=== PATIENT | male | born 2000 | race Caucasian/White ===

== ENCOUNTER 2020-08-23 11:05 | Emergency (ER) | payer BC ==
--- NOTE | 2020-08-23 11:48 | EDM.PDOC ---
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 He denies any other injuries, fever, chills, nausea, vomiting, change in bowel/bladder or other concerns. Last tetanus 8 years ago. - Related Data Allergies Allergy/AdvReac Type Severity Reaction Status Date / Time No Known Allergies Allergy Verified 08/23/20 11:26 Home Meds: Home Meds NK [No Known Home Meds] 08/23/20 [History] Past Medical History - Past Surgical History HEENT Surgical History: Reports: Myringotomy w Tube(s) Social & Family History - Tobacco Use Tobacco Use Status *Q: Current Every Day Tobacco User Years of Tobacco use: 1 Packs/Tins Daily: 0.2 ED ROS GENERAL - Review of Systems Review Of Systems: See Below Constitutional: Reports: No Symptoms HEENT: Reports: No Symptoms Respiratory: Reports: No Symptoms Cardiovascular: Reports: No Symptoms Endocrine: Reports: No Symptoms GI/Abdominal: Reports: No Symptoms : Reports: No Symptoms Musculoskeletal: Reports: Other (Pain to right index finger with flap laceration. Bleeding controlled) Skin: Reports: Wound (small flap laceration to tip of right index finger, bleeding controlled) Neurological: Reports: No Symptoms Psychiatric: Reports: No Symptoms Hematologic/Lymphatic: Reports: No Symptoms Immunologic: Reports: No Symptoms ED EXAM, SKIN/RASH Exam: See Below Exam Limited By: No Limitations General Appearance: Alert, WD/WN, Mild Distress Head: Atraumatic, Normocephalic Respiratory/Chest: No Respiratory Distress, Lungs Clear, Normal Breath Sounds, No Accessory Muscle Use, Chest Non-Tender. No: Crackles, Rales, Rhonchi, Wheezing Cardiovascular: Normal Peripheral Pulses, Regular Rate, Rhythm, No Edema, No Gallop, No Murmur, No Rub Peripheral Pulses: 4+: Radial (L), Radial (R) Extremities: Normal Range of Motion, Non-Tender, No Pedal Edema, Normal Capillary Refill, Other (0.5cm flap laceration right index finger, bleeding controlled. ) Neurological: Alert, Oriented, Normal Cognition, Normal Gait, Normal Reflexes, No Motor/Sensory Deficits Psychiatric: Normal Affect, Normal Mood Skin: Warm, Dry, Normal Color, No Rash Location, Skin: Other (right index finger, 0.5cm flap laceration fingertip, bleeding controlled) Associated features: Tenderness Lymphatic: No Adenopathy ED SKIN PROCEDURES - Laceration/Wound Repair Right Digit - 2nd (Index) Appearance: Superficial, Clean Distal NVT: Neuro & Vascular Intact, No Tendon Injury Anesthetic Type: Topical (None used) Local Anesthesia - Lidocaine (Xylocaine): Other (topical LET applied for 20 minutes, bleeding controlled) Skin Prep: Chlorhexidine (Hibiciens), Saline Exploration/Debridement/Repair: No Foreign Material Found, Other (distal finger nail removed, flap very thin, became dislodge, LET used with surgicel, bacitracin applied, finger dressing applied.) Closed with: Other (No sutures) Lac/Wound length In cm: 0.5 Sterile Dressing Applied: Nurse Tetanus Status Addressed: Yes Complications: No Course - Vital Signs Last Recorded V/S: Last Vital Signs Temp 36.1 C 08/23/20 11:34 Pulse 92 08/23/20 11:34 Resp 14 08/23/20 11:34 BP 130/80 08/23/20 11:34 Pulse Ox Departure - Departure Time of Disposition: 12:20 Disposition: Home, Self-Care 01 Condition: Good Clinical Impression: Flap laceration of skin, Laceration of index finger of right hand without complication - Discharge Information *PRESCRIPTION DRUG MONITORING PROGRAM REVIEWED*: Not Applicable *COPY OF PRESCRIPTION DRUG MONITORING REPORT IN PATIENT [place]: Not Applicable Instructions: Traumatic Finger Amputation Referrals: PCP,None [Primary Care Provider] - Forms: ED Department Discharge Additional Instructions: You have been evaluated and treated for flap fingertip laceration of right index finger. Small lacerated fingernail removed. Skin flap in place. Keep dressing on for 24 hours. Keep finger clean and dry. Use fingertip splint for protection with activity. Bacitracin to laceration twice per day. Gentle cleansing with soap and water twice per day. No need for tetanus today. Take ibuprofen and acetaminophen as needed for pain. Return for any worsening, swelling or signs of infection. Sepsis Event Note (ED) - Evaluation Sepsis Screening Result: No Definite Risk - Focused Exam Vital Signs: Vital Signs Temp Pulse Resp BP 11/08/20 11:34 36.1 C 92 14 130/80 - Assessment/Plan Assessment:: Flap laceration of skin, Laceration of index finger of right hand without complication Plan: Patient evaluated and treated for flap fingertip laceration of right index finger. Small lacerated fingernail removed. Skin flap in place. Keep dressing on for 24 hours. Keep finger clean and dry. Use fingertip splint for protection with activity. Bacitracin to laceration twice per day. Gentle cleansing with soap and water twice per day. No need for tetanus today. Take ibuprofen and acetaminophen as needed for pain. Return for any worsening, swelling or signs of infection.
[2020-08-23] MEDS ORDERED: Lidocaine/Epineph/Tetracaine 3 ML Syringe ONE (11:58)
[2020-08-23] MEDS ORDERED: Lidocaine/Epineph/Tetracaine 3 ML Syringe TOP ONE (11:58)
== END 2020-08-23 12:30 | disposition home or self-care (01) ==
LOC: JP.ED 11:05
DX: S61.310A Laceration without foreign body of right index finger with damage to nail, initial encounter (principal); F17.210 Nicotine dependence, cigarettes, uncomplicated; W26.9XXA Contact with unspecified sharp object(s), initial encounter
CPT/HCPCS: 99282; A9270